=== PATIENT | male | born 1980 | race Caucasian/White ===

== ENCOUNTER 2024-10-20 16:47 | Emergency (ER) | payer MEDICAID ==
[~2024-10-20] VITALS: Ht 177.8 cm; Wt 90.0 kg
[2024-10-20 16:49] VITALS: O2SAT 98
[2024-10-20 17:26] LABS: CHLORIDE 105 mEq/L (98-107); SODIUM 139 mEq/L (136-145)
[2024-10-20 17:27] LABS: CARBON DIOXIDE 29 mEq/L (21-32)
[2024-10-20 17:28] LABS: CALCIUM 9.6 mg/dL (8.7-10.4)
[2024-10-20 17:30] LABS: BASOPHILS % 0.9 % (0.0-2.0); EOSINOPHILS % 2.1 % (0.0-5.0); HEMATOCRIT. 47.1 % (42.0-52.0); HEMOGLOBIN. 16.4 g/dL (14.0-18.0); LYMPHOCYTES % 25.8 % (20.0-50.0); MEAN CORPUSCULAR HEMOGLOBIN 32.3 pg (28.0-32.0); MEAN CORPUSCULAR HGB CONC 34.8 g/dL (31.0-37.0); MEAN CORPUSCULAR VOLUME 92.8 fL (80.0-94.0); MONOCYTES % 8.1 % (2.0-8.0); NEUTROPHILS % 63.1 % (40.0-76.0); PLATELET 204 x1000/uL (130-400); RED BLOOD CELL COUNT 5.07 mill/uL (4.7-6.1); RED CELL DISTRIBUTION WIDTH 12.8 % (11.6-14.6); WHITE BLOOD COUNT 5.8 x1000/uL (4.5-11.0)
[2024-10-20 17:32] LABS: CREATININE 1.2 mg/dL (0.6-1.3); GLUCOSE 93 mg/dL (70-105); UREA NITROGEN BLOOD 19 mg/dL (9-23)
[2024-10-20 17:33] LABS: TROPONIN I HIGH SENSITIVITY 10 ng/L (3.0-53)
[2024-10-20] MEDS: ASPIRIN 81MG TABLET PO ONE (17:45)
[2024-10-20] MEDS: NITROGLYCERIN 0.4MG TABLET SL SL PRN (17:45)
[2024-10-20 20:34] LABS: TROPONIN I HIGH SENSITIVITY 11 ng/L (3.0-53)
[2024-10-20 21:35] VITALS: BP 124/66; PULSE 68; RESP 18; TEMP 36.89184; O2SAT 99
== END 2024-10-20 21:35 | disposition home or self-care (01) ==
LOC: ER 16:47
DX: R07.89 Other chest pain (principal)
CPT/HCPCS: 80048; 85025; 84484; 36415; 71045; 93005; 99285; Z7610